=== PATIENT | female | born 1990 | race African-American/Black ===

== ENCOUNTER 2017-06-12 17:21 | Emergency (ER) | payer BC ==
[~2017-06-12] VITALS: Ht 167.6 cm; Wt 90.7 kg
[~2017-06-12 17:21] MED LIST: COLACE 100 MG100 MG PO; HYDROCODON-ACE1 EAC7 PO; IBUPROFEN 600600 M1 PO; IRON325 PO; ROBAXIN500 MG PO
[2017-06-12 17:31] VITALS: BP 126/73
[2017-06-12] MEDS ORDERED: AMOXICILLIN 50500 MG PO (18:26)
[2017-06-12] MEDS ORDERED: NAPROSYN500 MG PO (18:26)
== END 2017-06-12 18:35 | disposition home or self-care (01) ==
LOC: ER 17:21
DX: H92.01 Otalgia, right ear (principal); K08.89 Other specified disorders of teeth and supporting structures